=== PATIENT | male | born 1965 | race Caucasian/White ===

== ENCOUNTER → 2019-03-18 | Outpatient (CLI) | payer MEDICAID ==
[~2019-03-18] MED LIST: HOLD METFORMIN - RECEIVED CONTRAST 20 ML VIAL IV SCH; IOHEXOL 350 MG/ML 150 ML (OMNIPAQUE 350) VIAL IV ONE
[2019-03-18 16:20] LABS: BUN/CREATININE RATIO 20; CREATININE SERUM 0.88 MG/DL (0.60-1.30); GFR ESTIMATED > 60
--- NOTE | 2019-03-18 16:21 | Diagnostic Imaging Report ---
PROCEDURE: US Venous Lower Ext Alonzo. TECHNIQUE: Multiple real-time grayscale images were obtained over the lower extremities in various projections, bilaterally. Additional duplex Doppler and color Doppler images were also obtained. INDICATION: Bilateral leg swelling. Dyspnea, hemoptysis. CORRELATION STUDY: None FINDINGS: Color and grayscale sonographic images demonstrate no intraluminal defect within the visualized portion of the common femoral, superficial femoral and/or popliteal veins to suggest thrombus formation. These vessels demonstrate normal response to compression and augmentation. No soft tissue fluid collection. IMPRESSION: 1. Negative for deep venous thrombosis of either leg. Dictated by: Dictated on workstation # [id number]
--- NOTE | 2019-03-18 17:21 | Diagnostic Imaging Report ---
PROCEDURE: CT angiography of the chest with contrast. TECHNIQUE: Multiple contiguous axial images were obtained through the chest after uneventful bolus administration of intravenous contrast. 2D reconstructed CTA MIP acquisitions were also performed. Auto Exposure Controls were utilized during the CT exam to meet ALARA standards for radiation dose reduction. INDICATION: Difficulty breathing on exertion, shortness of air, left-sided chest pain. COMPARISON: None. FINDINGS: Pulmonary arteries demonstrate no filling defect to suggest pulmonary embolism. The heart size is unremarkable. Thoracic aorta normal in contour. The lung mercado are clear of infiltrate. Scattered areas of peribronchial thickening are present. Likely some atelectatic change about the lingula. No significant effusion. Likely some degree of hepatic steatosis. A few mildly prominent but non pathologically enlarged upper abdominal lymph nodes. The visualized osseous structures demonstrate no acute findings. IMPRESSION: 1. No CTA evidence for pulmonary embolism. No acute abnormality about the chest. Likely minimal atelectasis about the lingula. Dictated by: Dictated on workstation # [id number]
[2019-03-18 17:24] LABS: ABG BASE EXCESS 0.1 MMOL/L (-2.5-2.5); ABG OXYGEN SATURATION 97 % (94-100); ABG PCO2 42 MMHG (35-45); ABG PH 7.39 (7.37-7.43); ABG PO2 87 MMHG (79-93); ALLENS TEST POSITIVE; INSPIRED O2 ROOM AIR; VENTILATOR NO
== END ==
LOC: RAD 15:40
PROVIDERS: ATTEND Nurse Practitioner Family
DX: R06.02 Shortness of breath (principal); R07.9 Chest pain, unspecified; R04.2 Hemoptysis; M79.89 Other specified soft tissue disorders
CPT/HCPCS: 36415; 36600; 71275; 82565; 82805; 84520; 93970; 94761

== ENCOUNTER → 2020-06-29 | Outpatient (CLI) | payer MEDICAID ==
--- NOTE | 2020-06-29 15:29 | Diagnostic Imaging Report ---
CT CHEST SCREENING WO TECHNIQUE: Low-dose unenhanced CT of the chest was performed according to the screening protocol. Coronal MIP and sagittal MPR reformats are created. Automatic exposure controls were utilized to keep dose as low as reasonably achievable. INDICATION: [id number] history of smoking. Current smoker. COMPARISON: CTA chest of 03/18/2019. FINDINGS: Pulmonary findings: No endoluminal nodule within the trachea. No pulmonary mass or consolidation. Mild centrilobular emphysema is unchanged. There are few scattered micronodules measuring less than 3 mm in size in the upper lobes. No pulmonary nodule that would suggest a clinically active lung cancer. Extrapulmonary findings: No pleural effusion or axillary lymphadenopathy. No mediastinal, discrete hilar, or juxtaphrenic lymphadenopathy. Heart is normal in size without pericardial effusion. Normal-caliber thoracic aorta. Hepatic steatosis is unchanged. No concerning focal osseous lesions. IMPRESSION: 1. Baseline screening exam is negative for features of clinically active lung cancer. Lung-RADS category: 1 - Negative Recommendations: Continued annual screening with low-dose CT in 12 months. Dictated by: Dictated on workstation # [id number]
== END ==
LOC: RAD 13:48
PROVIDERS: ATTEND Nurse Practitioner Family
DX: Z12.2 Encounter for screening for malignant neoplasm of respiratory organs (principal); F17.210 Nicotine dependence, cigarettes, uncomplicated